=== PATIENT | male | born 1955 | race Caucasian/White ===

== ENCOUNTER → 2017-03-15 | Outpatient (CLI) | payer OTHER ==
[~2017-03-15] MED LIST: FLAX100042 PO; GLUC-129 PO; MAGN30TA5 PO; RABE20TA33 PO
--- NOTE | 2017-03-15 15:24 | RADIOLOGY IMAGING REPORT ---
FACILITY: [facility] PATIENT NAME: Jayson Antunez : 1955 MR: [id number] V: [id number] EXAM DATE: ORDERING PHYSICIAN: COLLINS ARRIOLA TECHNOLOGIST: Location: [facility] Patient: Jayson Antunez : 1955 Visit/Account:[id number] Date of Sevice: 03/15/2017 BRAIN MR W/O CONTRAST ADDITIONAL PERTINENT HISTORY: Resting tremor of right arm and left leg pain COMPARISON STUDIES: None. TECHNIQUE: Multi-planar, multi-sequence brain MRI was performed without IV contrast administration. FINDINGS: Ventricles / sulci / fissures: Mildly prominent lateral ventricles with no associated mass effect or transependymal migration of CHF Masses / hemorrhage / midline shift: Negative. Intra-axial: There are several small foci of increased FLAIR and T2 signal intensity in the perivent ricular white matter of the left frontal temporal lobe right parietal lobe. There is no associated m ass effect or restricted diffusion or hemorrhage. Extra-axial fluid collections: Negative. Intracranial vasculature and dural sinuses: Negative. Skull base / calvarium: Negative. Visualized mastoid air cells / paranasal sinuses: There is mucosal thickening in the ethmoid and maxi llary sinuses Orbits: Negative. Scalp: Negative Upper neck:Negative. IMPRESSION: There are several small foci of increased FLAIR and T2 signal intensity in the periventricular white matter in the left frontal temporal lobe and right parietal lobe with no associated mass effect or re stricted diffusion or hemorrhage. The appearance is nonspecific likely related to chronic microische jacey changes although the differential diagnosis would include a demyelinating process or vasculitis. Mildly prominent lateral ventricles with no associated mass effect or transependymal migration of CSF . This may be related to mild central atrophy Mucosal thickening in the ethmoid and maxillary sinuses Report Dictated By: Zaira Bauman MD at 03/15/2017 3:13 PM Report E-Signed By: Zaira Bauman MD at 03/15/2017 3:20 PM WSN:[email or web address]
== END ==
LOC: MRI 13:35
PROVIDERS: ATTEND Physician Assistant
DX: R25.9 Unspecified abnormal involuntary movements (principal); M79.605 Pain in left leg
CPT/HCPCS: 70551

== ENCOUNTER 2017-05-26 01:21 | Day surgery (SDC) | payer OTHER ==
[~2017-05-26] VITALS: Ht 175.3 cm; Wt 88.0 kg
[2017-05-26] VITALS (7 sets, daily range): BP systolic 86–137; BP diastolic 62–96
[~2017-05-26 01:21] MED LIST changes: +CARB-94 PO; +LISI-353 PO; +UBID100C48 PO; +tumeric PO
[2017-05-26] MEDS ORDERED: LIDOCAINE/SOD BICARB 8.4% SYR ID ONE (06:45)
[2017-05-26] MEDS ORDERED: NORMOSOL R SOLN(*) 1000 ML BAG 1,000 ML IV PRN (06:45)
[2017-05-26] MEDS ORDERED: PROPOFOL EMUL(*) 10MG/ML 20 ML 40 ML ONE (07:06)
--- NOTE | 2017-05-26 07:32 | Short(Outpt) Discharge Summary ---
Discharge Summary Reason for Hosp/Final Diag: (1) GERD (gastroesophageal reflux disease) Hospital Course & Plan: normal egd (2) Encounter for screening colonoscopy Hospital Course & Plan: diverticula right colon and 2 mm polyp hepatic flexure Departure Discharge to: Home Discharge Instructions Home Meds Reported Medications Ubidecarenone (COQ-10) 100 Mg Capsule, 800 MG PO QDAY, CAPSULE 05/18/17 Lisinopril/Hydrochlorothiazide (LISINOPRIL-HCTZ 20-12.5 MG TAB) 1 Each Tablet, 1 EACH PO QDAY 05/18/17 [tumeric] No Conflict Check, 400 MG PO QDAY 05/18/17 Carbidopa/Levodopa (CARBIDOPA-LEVODOPA 25-100 TAB) 1 Each Tablet, 1 EACH PO QDAY 05/18/17 [facility]-3 Fatty Acids ([facility] 3) 1 Cap Capsule, 1 CAP PO, 0 Refills 02/16/09 Magnesium (Magnesium) 30 Mg Tablet, 30 MG PO, 0 Refills 02/16/09 Diet: Regular Activity: As Tolerated SAGE HELTON MD May 26, 2017 07:32
--- NOTE | 2017-05-26 07:32 | Post Operative Progress Note ---
Post Operative Progress Note Date: May 26, 2017 Time: 08:05 Surgeon: matthew Anesthesia: dr vidal Pre-Op Diagnosis: gerd and screening colonoscopy Post-Op Diagnosis: normal egd Procedure(s): egd and colonoscopy 2 mm polyp hepatic flexure and diverticula right colon SAGE HELTON MD May 26, 2017 07:32
[2017-05-26] MEDS ORDERED: PROPOFOL EMUL(*) 10MG/ML 20 ML 20 ML ONE (08:02)
--- NOTE | 2017-05-26 15:25 | OPERATIVE REPORT 1 ---
EVENT DATE: May 26, 2017 SURGEON: Guanakito Browne MD ANESTHESIOLOGIST: Ruben Mendez MD ANESTHESIA: Sedation. PREOPERATIVE DIAGNOSIS Gastroesophageal reflux disease. POSTOPERATIVE DIAGNOSIS Normal-appearing esophagogastroduodenoscopy. PROCEDURE PERFORMED Esophagogastroduodenoscopy. DESCRIPTION OF PROCEDURE The patient was placed in the left lateral decubitus position and given intravenous sedation. Flexible gastroscope was inserted and advanced without difficulty. The esophagus appeared to be normal, distended nicely. No narrowings. No inflammation was noted. The GE junction was right at 40 cm and distinct. We went into the stomach. It was empty. We passed through the pylorus and the second and third portions of the duodenum which were normal. Duodenal bulb was normal. Pylorus was normal. Antrum and body of the stomach were normal. Scope was retroflexed. There were no fundic lesions. I could not identify a hiatal hernia. Scope was then slowly withdrawn. Care was taken to look at the distal esophagus, and again, it appeared to be completely normal. MTDD
--- NOTE | 2017-05-26 15:32 | OPERATIVE REPORT 1 ---
EVENT DATE: May 26, 2017 SURGEON: Guanakito Browne MD ANESTHESIOLOGIST: Ruben Mendez MD ANESTHESIA: Sedation. PREOPERATIVE DIAGNOSIS Screening colonoscopy. POSTOPERATIVE DIAGNOSES 1. Diverticula in the right colon. 2. A 2 mm polyp at the hepatic flexure. PROCEDURE PERFORMED Colonoscopy with polypectomy. DESCRIPTION OF PROCEDURE The patient was placed in the left lateral decubitus position and given intravenous sedation. Rectal exam was unremarkable. Flexible colonoscope was inserted and advanced to the cecum. He had an excellent bowel prep. Ileocecal valve, base of the cecum, appendiceal orifice identified. Scope was slowly withdrawn. Care was taken to look behind the haustral folds. In the right colon, he had a few diverticula. At the hepatic flexure, he had a 2 mm projection. This was removed a couple of bites with the cold cup. The rest of the transverse, descending, sigmoid colon was normal. Rectum was normal. Scope was retroflexed. That appeared to be normal. [facility]
== END 2017-05-26 09:15 | disposition home or self-care (01) ==
LOC: OR 01:21
PROVIDERS: ATTEND Surgery
DX: Z12.11 Encounter for screening for malignant neoplasm of colon (principal); K63.5 Polyp of colon; K57.30 Diverticulosis of large intestine without perforation or abscess without bleeding; K21.9 Gastro-esophageal reflux disease without esophagitis
CPT/HCPCS: 00811; 43235; 45380; 88305; J2704